=== PATIENT | male | born 1945 | race Caucasian/White ===

== ENCOUNTER 2018-01-28 09:00 | Outpatient (RCR) | payer OTHER | END 2018-02-16 | disposition home or self-care (01) | LOC: PTY 09:00 | DX: M25.774 Osteophyte, right foot (principal); Q66.7 Congenital pes cavus ==

== ENCOUNTER 2018-02-25 10:16 | Outpatient (RCR) | payer OTHER | END 2018-03-19 | disposition home or self-care (01) | LOC: PTY 10:16 | DX: M25.774 Osteophyte, right foot (principal); Q66.7 Congenital pes cavus ==

== ENCOUNTER 2018-04-23 11:02 | Outpatient (RCR) | payer OTHER | END 2018-05-19 | disposition home or self-care (01) | LOC: PTY 11:02 | DX: M25.774 Osteophyte, right foot (principal); Q66.7 Congenital pes cavus ==